=== PATIENT | female | born 1995 | race African-American/Black ===

== ENCOUNTER 2021-09-19 08:05 | Outpatient (CLI) | payer BC ==
[2021-09-19 10:11] LABS: #Monocytes 0.2 10x3/uL (0.0-1.1); %Basophils 1.3 % (0.0-2.0); %Eosinophils 1.3 % (0.0-6.0); %Monocytes 9.6 % (0.0-10.0); %Neutrophils 44.4 % (40.0-75.0); Hemoglobin 6.6 g/dL (12.0-15.5); Mean Corpuscular HGB CONC 26.5 g/dL (32.0-36.0); Mean Corpuscular Hemoglobin 16.1 pg (27.0-33.0); Mean Corpuscular Volume 60.6 fl (81.6-98.3); Platelet Count 289 10x3/uL (150-450); RBC Distribution Width 27.3 % (11.5-14.5); Red Blood Cell (RBC) Count 4.11 10x6/uL (3.90-5.03)
[2021-09-19 10:25] LABS: BHCG - Serum Negative (NEGATIVE); Pregs Control Background? CLEAR/WHITE (CLR/WHITE); Pregs Control Bar Appear? YES (CONTROL BAR)
[2021-09-19 10:42] LABS: White Blood Cell (WBC) Count 2.3 10x3/uL (3.5-10.5)
[2021-09-19 10:49] LABS: Anisocytosis MODERATE=16-30 cells (100X) (0-5/hpf); Poikilocytosis SLIGHT = 6-15 cells (100X) (0-5/hpf)
[2021-09-19 10:50] LABS: Hypochromia MODERATE=16-30 cells (100X) (0-5/hpf); Microcytosis MODERATE=15-30 cells (100X) (0-5/hpf)
[2021-09-19 10:52] LABS: Ovalocytes SLIGHT = 2-5 cells (100X) (0-1/hpf); Schistocytes SLIGHT = 2-5 cells (100X) (0-1/hpf); Target Cells SLIGHT = 2-5 cells (100X) (0-1/hpf)
[2021-09-19 10:54] LABS: Platelet Morphology Comment Appears Adequate; Reflex for Review?? YES
[2021-09-19 18:02] LABS: SARS-CoV-2 PCR by NAA Not Detected (NotDetected)
== END 2021-09-19 08:06 | disposition home or self-care (01) ==
LOC: LABBT 08:05
PROVIDERS: ATTEND Surgery
DX: Z01.812 Encounter for preprocedural laboratory examination (principal); K64.4 Residual hemorrhoidal skin tags; Z20.822 Contact with and (suspected) exposure to COVID-19
CPT/HCPCS: 84703; 85025; 85060; U0003; U0005

== ENCOUNTER 2021-09-22 07:38 | Day surgery (SDC) | payer BC ==
[2021-09-21 13:06] VITALS: BMI 19.6
[2021-09-22 08:56] LABS: Hemoglobin 7.5 g/dL (12.0-16.0)
== END 2021-09-22 09:49 | disposition home or self-care (01) ==
LOC: SDC 07:38
PROVIDERS: ATTEND Surgery
DX: K64.4 Residual hemorrhoidal skin tags (principal); J45.909 Unspecified asthma, uncomplicated; Z53.9 Procedure and treatment not carried out, unspecified reason; Z88.8 Allergy status to other drugs, medicaments and biological substances
CPT/HCPCS: 36415; 85014; 85018; 86850; 86900; 86901

== ENCOUNTER 2022-05-29 10:16 | Outpatient (CLI) | payer BC ==
[2022-05-29 11:27] LABS: Platelet Count 232 10x3/uL (150-450)
[2022-05-29 11:28] LABS: #Monocytes 0.4 10x3/uL (0.0-1.1); #Neutrophils 2.9 10x3/uL (1.5-8.4); %Basophils 0.9 % (0.0-2.0); %Eosinophils 0.9 % (0.0-6.0); %Lymphocytes 26.9 % (18.0-47.0); %Monocytes 7.9 % (0.0-10.0); %Neutrophils 63.2 % (40.0-75.0); Mean Corpuscular HGB CONC 31.9 g/dL (32.0-36.0); Mean Corpuscular Hemoglobin 26.7 pg (27.0-33.0); Mean Corpuscular Volume 83.6 fl (81.6-98.3); Mean Platelet Volume 11.5 fl (7.4-10.4); RBC Distribution Width 21.4 % (11.5-14.5); Red Blood Cell (RBC) Count 4.87 10x6/uL (3.90-5.03); White Blood Cell (WBC) Count 4.6 10x3/uL (3.5-10.5)
[2022-05-29 11:40] LABS: BHCG - Serum Negative (NEGATIVE); Pregs Control Background? CLEAR/WHITE (CLR/WHITE); Pregs Control Bar Appear? YES (CONTROL BAR)
== END 2022-05-29 10:17 | disposition home or self-care (01) ==
LOC: LABBT 10:16
PROVIDERS: ATTEND Surgery
DX: Z01.812 Encounter for preprocedural laboratory examination (principal); K64.4 Residual hemorrhoidal skin tags; Z20.822 Contact with and (suspected) exposure to COVID-19
CPT/HCPCS: 84703; 85025; 87811

== ENCOUNTER 2022-06-01 08:16 | Day surgery (SDC) | payer BC ==
[2022-06-01] MEDS ORDERED: Bupivacaine/Epinephrine 0.25% 30 ML VIAL ONE (10:02)
[2022-06-01] MEDS ORDERED: Dexamethasone 20 MG/5 ML VIAL ONE (10:05)
[2022-06-01] MEDS ORDERED: Ondansetron PF 4 MG/2 ML Vial ONE (10:05)
[2022-06-01] MEDS ORDERED: PROPOFOL 200 MG/20 ML VIAL ONE (10:05)
[2022-06-01] MEDS ORDERED: Lidocaine 1% PF 5 ML VIAL ONE (10:05)
[2022-06-01] MEDS ORDERED: Midazolam HCl 2 mg/2 ml Vial ONE (10:06)
[2022-06-01] MEDS ORDERED: fentaNYL Citrate/PF 100 MCG/2 ML SYRINGE ONE ×2 (10:06→10:29)
[2022-06-01] MEDS ORDERED: Bacitracin Zinc Ointment 30 gm TUBE ONE (10:36)
== END 2022-06-01 13:10 | disposition home or self-care (01) ==
LOC: SDC 08:16
PROVIDERS: ATTEND Surgery
PROC: 0DBQXZZ Excision of Anus, External Approach (ICD-10-PCS; principal; 2022-06-01)
PROC: 0D8R3ZZ Division of Anal Sphincter, Percutaneous Approach (ICD-10-PCS; principal; 2022-06-01)
DX: K60.1 Chronic anal fissure (principal); K64.4 Residual hemorrhoidal skin tags; J45.909 Unspecified asthma, uncomplicated; Z79.3 Long term (current) use of hormonal contraceptives; Z88.8 Allergy status to other drugs, medicaments and biological substances
CPT/HCPCS: 88304; C1889; J1100; J2250; J2405; J2704